=== PATIENT | female | born 1955 | race Caucasian/White ===

== ENCOUNTER → 2016-12-16 | Outpatient (CLI) | payer OTHER | LOC: FIMAGING 10:16 | DX: Z12.31 Encounter for screening mammogram for malignant neoplasm of breast (principal) | CPT/HCPCS: G0202 ==

== ENCOUNTER → 2018-02-02 | Outpatient (CLI) | payer OTHER | LOC: FIMAGING 11:59 | PROVIDERS: ATTEND Family Medicine | DX: Z12.31 Encounter for screening mammogram for malignant neoplasm of breast (principal) ==

== ENCOUNTER → 2018-10-26 | Outpatient (CLI) | payer OTHER | LOC: FIMAGING 15:23 | PROVIDERS: ATTEND Family Medicine | DX: J40 Bronchitis, not specified as acute or chronic (principal) ==

== ENCOUNTER 2018-12-14 15:36 | Emergency (ER) | payer OTHER ==
[2018-12-14] MEDS ORDERED: OXYCODONE/APAP 5/325 TAB PO ONE (15:56)
--- NOTE | 2018-12-14 18:20 | EDPHY ---
H & P Stated Complaint: slipped hiking l shoulder humerus pain Time Seen by Provider: 12/14/18 18:15 HPI/ROS: HPI: This is a 63-year-old female who presents with Chief Complaint: slipped hiking l shoulder humerus pain Location: Left shoulder Quality: Injury Duration: 2 hr prior to arrival Signs and Symptoms: No bleeding, no radiation, no numbness, no weakness, no tingling, no incontinence, + decreased range of motion, no swelling, + pain, no fever Timing: Acute Severity: 07/29 Context: Patient was hiking the [place] with her when she accidentally slipped on the snowy[place] ground and fell directly onto her left shoulder. Patient is right-hand dominant. She reports that she felt immediate, constant, radiating pain down into her left elbow and up into her left clavicle. Describes pain as severe, 10 out 10, worst pain she has ever felt. Denies LOC/ head injury/neck pain/dizziness/nausea/vomiting/amnesia. Modifying Factors: None Comment: ROS: A comprehensive 10 system review of systems is otherwise negative aside from elements mentioned in the history of present illness. MEDICAL/SURGICAL/SOCIAL HISTORY: Medical history: Hypothyroidism. Surgical history: Sinus surgery Social history: . Nonsmoker CONSTITUTIONAL: Mild distress, adult white female, at bedside, awake and alert HEENT: Atraumatic and normocephalic. Wears glasses. NECK: supple, no midline tenderness, flexion 45 degrees, extension 45 degrees, right and left lateral flexion 45 degrees. No meningismus. Cardiovascular: Normal S1/S2, regular rate, regular rhythm, without murmur rub or gallop. PULMONARY/CHEST: Symmetrical and nontender. no crepitus. Clear to auscultation bilaterally. Good air movement. No accessory muscle usage. ABDOMEN: Soft, nondistended, nontender, no ecchymosis. EXTREMITIES: 2/2 pulses, strength 5/5, left SHOULDER: No clavicle deformity appreciated. Moderate Tenderness to palpation over AC joint. Patient is guarding left arm and holding it with 90 flexed at the elbow. Tenderness to palpation at the left humeral neck. Left ELBOW: Full extension to 180, flexion to 150, no tenderness over medial epicondyle, no tenderness over lateral epicondyle, no effusion. Left WRIST: Extension to 70, flexion to 80 , radial deviation to 20 degree, ulnar deviation to 30, no scaphoid tenderness , no tenderness over ulnar styloid, no tenderness over radial styloid. DIP/PIP/ MCP flexion/extension intact with good light touch sensation. no deformities, no clubbing, no cyanosis or edema. NEUROLOGICAL: no focal neuro deficits. GCS 15. Light touch sensation intact. SKIN: Warm and dry, no erythema. no rash. Good capillary refill. Source: Patient Exam Limitations: No limitations - Personal History Current Tetanus Diphtheria and Acellular Pertussis (TDAP): Yes - Medical/Surgical History Hx Asthma: No Hx Chronic Respiratory Disease: No Hx Diabetes: No Hx Cardiac Disease: No Hx Renal Disease: No Hx Cirrhosis: No Hx Alcoholism: No Hx HIV/AIDS: No Hx Splenectomy or Spleen Trauma: No Other PMH: sinus surg hypothyroid - Social History Smoking Status: Never smoked Constitutional: Initial Vital Signs Temperature (C) 36.5 C 12/14/18 15:48 Heart Rate 61 12/14/18 15:48 Respiratory Rate 17 12/14/18 15:48 Blood Pressure 150/57 H 12/14/18 15:48 O2 Sat (%) 100 12/14/18 15:48 O2 Delivery Mode Room Air Allergies/Adverse Reactions: Sulfa (Sulfonamide Antibiotics) Allergy (Verified 12/14/18 15:47) Home Medications: Medication Instructions Recorded Levothyroxine 04/12/13 Liothyronine Sodium 12/14/18 oxyCODONE/APAP 5/325 [Percocet 1 - 2 tab PO Q4H PRN #10 tab 12/14/18 5/325 (*)] Medical Decision Making - Diagnostics Imaging Results: Imaging Impressions Shoulder X-Ray 12/14/18 15:53 Impression: Fracture of the left humeral neck. Left Humerus, 2 Views Clinical Indications: Pain following trauma. Findings: There is a fracture of the proximal left humerus as detailed above. No other fracture is seen. No radiopaque foreign body is identified. Impression: Left humeral neck fracture. Humerus X-Ray 12/14/18 15:55 Impression: Fracture of the left humeral neck. Left Humerus, 2 Views Clinical Indications: Pain following trauma. Findings: There is a fracture of the proximal left humerus as detailed above. No other fracture is seen. No radiopaque foreign body is identified. Impression: Left humeral neck fracture. Procedures: Procedure: Splint placement. A left coaptation splint and sling were applied. After application of the splint I returned and re-examined the patient. The splint was adequately immobilizing the joint and distal to the splint the patient's circulation and sensation was intact. ED Course/Re-evaluation: Vital signs reviewed and show elevated blood pressure likely secondary to pain. No indication for head CT imaging. Left shoulder and humerus x-ray shows left humeral neck fracture that is mildly displaced and minimally angulated. Patient initially given Percocet in triage without relief of pain. IM fentanyl 50 mcg given with adequate pain relief Placed coaptation splint, sling, orthopedic follow-up No signs of neurovascular compromise/tenting of skin/compartment syndrome/ extremities and joints examined above and below area of concern and are neurovascularly intact. This patient was seen under the supervision of my secondary supervising physician. I evaluated care for this patient independently. Discussed this patient with Dr. Mayes. Differential Diagnosis: Shoulder injury differential diagnosis includes but is not limited to clavicle fracture, contusion, AC joint separation, rotator cuff injury, labral tear, humeral head fracture, sprain, scapula fracture. - Data Points Medications Given: Discontinued Medications Fentanyl (Sublimaze) 50 mcg IM EDNOW ONE Stop: 12/14/18 18:24 Last Admin: 12/14/18 18:26 Dose: 50 mcg Oxycodone/Acetaminophen (Percocet 5/325) 1 tab PO EDNOW ONE Stop: 12/14/18 15:57 Last Admin: 12/14/18 15:59 Dose: 1 tab Departure - Departure Disposition: Home, Routine, Self-Care Clinical Impression: Closed fracture of neck of left humerus Qualifiers: Encounter type: initial encounter Qualified Code(s): S42.212A - Unspecified displaced fracture of surgical neck of left humerus, initial encounter for closed fracture Condition: Good Instructions: Arm Fracture in Adults (ED), ORIF of an Arm Fracture (DC), How to Use a Sling (ED), Splint Care (ED) Additional Instructions: Keep the splint dry and in place until seen by Orthopedics. Take Tylenol 650 mg every 4 hours and/or Ibuprofen 600 mg every 8 hours with food as needed for pain. Use Percocet every 6 hours as needed for severe/break through pain. Do not use Tylenol and Percocet concomitantly. Apply ice for 30 minutes at a time; 2-3 times per day for the next 1-2 days. Follow up with Orthopedics in 3-5 days at which time they will evaluate and recommend with you if conservative management versus surgery is indicated. Follow-Up: Please follow-up as noted above. Follow-up sooner if your condition worsens or if you develop any new problems. Call as soon as possible for an appointment. Be clear when you call for an appointment that this is an Emergency Department follow-up. Contact the Emergency Department if you have trouble arranging follow-up care. Our referrals are not based on your insurance network. When time allows, contact your insurance carrier to verify the referral physician is in your plan. If not, get a referral for an in-ether[employer] network architect. Referrals: Rama Hoover MD [Primary Care Provider] - As per Instructions Julian Savage MD [Medical Doctor] - As per Instructions Prescriptions: oxyCODONE/APAP 5/325 [Percocet 5/325 (*)] 1 - 2 tab PO Q4H PRN #10 tab PRN Reason: Pain, Severe
[2018-12-14] MEDS ORDERED: fentaNYL 100 MCG/2 ML INJ IM ONE (18:23)
[2018-12-14 19:12] VITALS: BP 164/74
== END 2018-12-14 19:12 | disposition home or self-care (01) ==
PROC: 2W39X1Z Immobilization of Left Upper Extremity using Splint (ICD-10-PCS; principal; 2018-12-14)
DX: S42.212A Unspecified displaced fracture of surgical neck of left humerus, initial encounter for closed fracture (principal); E03.9 Hypothyroidism, unspecified; W01.0XXA Fall on same level from slipping, tripping and stumbling without subsequent striking against object, initial encounter; Y93.01 Activity, walking, marching and hiking; Y92.828 Other wilderness area as the place of occurrence of the external cause
CPT/HCPCS: A4565; J3010

== ENCOUNTER → 2019-03-12 | Outpatient (CLI) | payer OTHER | LOC: BMCIMAGING 12:18 | PROVIDERS: ATTEND Family Medicine | DX: Z12.31 Encounter for screening mammogram for malignant neoplasm of breast (principal) ==